=== PATIENT | male | born 1995 | race African-American/Black ===

== ENCOUNTER 2017-06-09 07:38 | Emergency (ER) | payer BC ==
[~2017-06-09] VITALS: Ht 182.9 cm; Wt 71.5 kg
[2017-06-09 07:39] VITALS: BP 144/80
[2017-06-09] MEDS ORDERED: KETOROLAC 30 MG/1 ML IM ONE (08:00)
[2017-06-09] MEDS ORDERED: KETOROLAC 30 MG/1 ML ONE (08:23)
== END 2017-06-09 09:15 | disposition home or self-care (01) ==
LOC: ED 08:42
DX: R07.89 Other chest pain (principal); J45.909 Unspecified asthma, uncomplicated
CPT/HCPCS: 71020; 93005; 99284

== ENCOUNTER 2021-07-07 08:34 | Emergency (ER) | payer BC ==
[~2021-07-07] VITALS: Ht 185.4 cm; Wt 77.0 kg
--- NOTE | 2021-07-07 09:37 | NUR ---
ARRIVES WITH WITH BLOOD IN URINE ONE WEEK AGO, THEN IT HAPPENED AGAIN TODAY. HE THEN WAS IN SHOWER MASTURBATING AND BLOOD CAME OUT WELL. NO PAIN.
[2021-07-07 09:42] LABS: MICROSCOPIC NOT IND
[2021-07-07 10:02] LABS: BASOPHILS % (AUTO) 1 % (0-1); EOSINOPHILS % (AUTO) 2 % (1-7); LYMPHOCYTES % (AUTO) 28 % (22-44); MEAN CORPUSCULAR HEMOGLOBIN 31.2 pg (27.5-34.5); MEAN CORPUSCULAR HGB CONC 34.2 g/dL (33.2-36.2); MEAN PLATELET VOLUME 6.9 fL (7.4-10.4); MONOCYTES % (AUTO) 8 % (2-9); NEUTROPHILS % (AUTO) 62 % (42-75); PLATELET COUNT 318 x10^3/uL (130-400); RED BLOOD COUNT 5.09 x10^6/uL (4.38-5.82); RED CELL DISTRIBUTION WIDTH 12.7 % (9.4-14.8)
[2021-07-07 10:10] LABS: ALBUMIN 4.5 g/dL (3.4-5.0); ANION GAP 5 mmol/L (5-15); CALCIUM 9.1 mg/dL (8.5-10.1); CHLORIDE 109 mmol/L (98-107); CREATININE 1.05 mg/dL (0.7-1.3)
[2021-07-07 11:18] VITALS: BP 118/78
--- NOTE | 2021-07-07 11:18 | NUR ---
discharge reviewed, patient shows understanding.
== END 2021-07-07 11:20 | disposition home or self-care (01) ==
LOC: ED 08:44
DX: R31.0 Gross hematuria (principal); R10.30 Lower abdominal pain, unspecified
CPT/HCPCS: 36415; 80048; 81003; 82040; 85025; 99283